=== PATIENT | male | born 1950 | race Native Hawaiian/Other Pacific Islander ===

== ENCOUNTER 2022-04-25 14:49 | Outpatient (CLI) | payer OTHER ==
[2022-04-25 15:16] LABS: PLATELET COUNT 341 K/uL (142-355)
[2022-04-25 15:22] LABS: POTASSIUM 4.2 mmol/L (3.6-5.2)
== END 2022-04-25 18:56 | disposition home or self-care (01) ==
LOC: LAB 14:49
PROVIDERS: ATTEND Nurse Practitioner Family
DX: Z79.899 Other long term (current) drug therapy (principal); Z79.2 Long term (current) use of antibiotics
CPT/HCPCS: 80048; 85027; 86140

== ENCOUNTER 2022-05-16 14:03 | Outpatient (CLI) | payer OTHER ==
[2022-05-16 14:25] LABS: PLATELET COUNT 232 K/uL (142-355)
[2022-05-16 15:12] LABS: POTASSIUM 5.1 mmol/L (3.6-5.2)
== END 2022-05-16 19:13 | disposition home or self-care (01) ==
LOC: LAB 14:03
PROVIDERS: ATTEND Nurse Practitioner Family
DX: Z79.899 Other long term (current) drug therapy (principal); Z79.2 Long term (current) use of antibiotics
CPT/HCPCS: 80048; 85027; 86140

== ENCOUNTER 2022-05-23 15:04 | Outpatient (CLI) | payer OTHER ==
[2022-05-23 15:36] LABS: PLATELET COUNT 189 K/uL (142-355)
[2022-05-23 15:41] LABS: POTASSIUM 5.1 mmol/L (3.6-5.2)
== END 2022-05-23 19:11 | disposition home or self-care (01) ==
LOC: LAB 15:04
PROVIDERS: ATTEND Nurse Practitioner Family
DX: Z79.2 Long term (current) use of antibiotics (principal)
CPT/HCPCS: 80048; 85027; 86140

== ENCOUNTER 2022-06-20 12:10 | Outpatient (CLI) | payer OTHER ==
[2022-06-20 13:21] LABS: POTASSIUM 4.4 mmol/L (3.6-5.2)
[2022-06-20 14:10] LABS: PLATELET COUNT 196 K/uL (142-355)
== END 2022-06-20 19:08 | disposition home or self-care (01) ==
LOC: LAB 12:10
PROVIDERS: ATTEND Nurse Practitioner Family
DX: Z79.899 Other long term (current) drug therapy (principal); Z79.2 Long term (current) use of antibiotics
CPT/HCPCS: 80048; 85027; 86140